=== PATIENT | female | born 1965 | race Caucasian/White ===

== ENCOUNTER 2017-12-02 09:40 | Emergency (ER) | payer OTHER ==
[~2017-12-02] VITALS: Ht 162.6 cm; Wt 79.1 kg
[~2017-12-02 09:40] MED LIST: CLOT15CR74 TP; NO HOME MEDS; ONDA4TAB12 PO; OXYC-134 PO
[2017-12-02 10:21] LABS: CLARITY,URINE CLOUDY (Clear); GLUCOSE, URINE NEGATIVE (Neg); KETONES,URINE NEGATIVE (Neg); LEUKOCYTE ESTERASE ,URINE NEGATIVE (Neg); NITRITES, URINE NEGATIVE (Neg); OCCULT BLOOD,URINE LARGE (Neg); PH,URINE 5.5 (4.8-8.0); PROTEIN,URINE TRACE mg/dl (Neg); UROBILINOGEN,URINE 0.2 E.U/dL (0.2-1.0)
[2017-12-02 10:23] LABS: COLOR,URINE DARK YELLOW (Yellow); UA COLLECTION TYPE CLN CATCH MIDSTREAM
[2017-12-02 10:28] LABS: BACTERIA,URINE 2+ /HPF (Neg); MUCUS STRANDS MODERATE /LPF (Neg); RBC,URINE 20-50 /HPF (0-2); SQUAMOUS EPITHELIAL CELL,UR MANY /LPF (FEW); WBC,URINE 0-4 /HPF (0-4)
[2017-12-02 11:17] LABS: BASOPHILS % (AUTO) 0.4 % (0-1); EOSINOPHILS # (AUTO) 0.3 X10'3 (0-0.9); EOSINOPHILS % (AUTO) 3.3 % (0-6); HEMATOCRIT 41.6 % (35.0-45.0); HEMOGLOBIN 14.1 g/dl (12.0-16.0); LYMPHOCYTES # (AUTO) 1.2 X10'3 (1.1-4.8); LYMPHOCYTES % (AUTO) 14.9 % (21-51); MEAN CORPUSCULAR HEMOGLOBIN 29.5 PG (27.0-31.0); MEAN CORPUSCULAR VOLUME 86.8 FL (78-98); MEAN PLATELET VOLUME 7.9 FL (7.4-10.4); MONOCYTES # (AUTO) 0.5 X10'3 (0-0.9); MONOCYTES % (AUTO) 5.9 % (2-12); NEUTROPHILS # (AUTO) 6.1 X10'3 (1.8-7.7); NEUTROPHILS % (AUTO) 75.5 % (42-75); PLATELET COUNT 204 X10'3 (140-440); RED CELL DISTRIBUTION WIDTH 13.1 % (11.5-14.5); WHITE BLOOD COUNT 8.1 X10'3 (4.5-11.0)
[2017-12-02 11:33] LABS: ALANINE AMINOTRANSFERASE 45 U/L (12-78); ALBUMIN 3.9 G/DL (3.4-5.0); ALBUMIN/GLOBULIN RATIO 1.1 (1.1-1.5); ALKALINE PHOSPHATASE 81 IU/L (46-116); ANION GAP 10 (8-16); ASPARTATE AMINO TRANSFERASE 17 U/L (10-37); BILIRUBIN,TOTAL 0.6 MG/DL (0.1-1.0); BLOOD UREA NITROGEN 13 MG/DL (7-18); BUN/CREATININE RATIO 17.8 (6.6-38.0); CALCIUM 8.9 MG/DL (8.5-10.1); CHLORIDE 107 MMOL/L (99-107); CREATININE 0.73 MG/DL (0.40-0.90); GLUCOSE 134 MG/DL (70-104); POTASSIUM 3.5 MMOL/L (3.5-5.1); SODIUM 143 MMOL/L (135-145); TOTAL CARBON DIOXIDE 26.4 MMOL/L (24-32); TOTAL PROTEIN 7.5 G/DL (6.4-8.2); eGFR 83 ML/MIN
[2017-12-02 13:44] VITALS: BP 118/69
== END 2017-12-02 13:45 | disposition home or self-care (01) ==
LOC: ER 09:40
DX: K63.89 Other specified diseases of intestine (principal); Z90.710 Acquired absence of both cervix and uterus
CPT/HCPCS: 36415; 74176; 80053; 81001; 85025; 85610; 99285

== ENCOUNTER 2017-12-19 08:39 | Outpatient (CLI) | payer OTHER ==
[2017-12-19] MEDS ORDERED: iohexol 300mg/ml 100ml inj. ONE (09:45)
== END 2017-12-19 23:59 | disposition home or self-care (01) ==
LOC: 64 CT 08:39
PROVIDERS: ATTEND Surgery
DX: Z00.00 Encounter for general adult medical examination without abnormal findings (principal)
CPT/HCPCS: 74177; Q9967

== ENCOUNTER 2018-01-03 08:49 | Outpatient (CLI) | payer OTHER | END 2018-01-03 23:59 | disposition home or self-care (01) | LOC: RAD 08:49 | PROVIDERS: ATTEND Surgery | DX: M23.203 Derangement of unspecified medial meniscus due to old tear or injury, right knee (principal); M71.21 Synovial cyst of popliteal space [Baker], right knee | CPT/HCPCS: 73721 ==

== ENCOUNTER 2018-04-25 09:22 | Day surgery (SDC) | payer OTHER ==
[2018-04-25] VITALS (7 sets, daily range): BP systolic 100–111; BP diastolic 58–67
[~2018-04-25] VITALS: Ht 162.6 cm; Wt 75.0 kg
[2018-04-25] MEDS ORDERED: MIDAZolam 5mg/5ml vial ONE (10:37)
[2018-04-25] MEDS ORDERED: fentaNYL/PF 50MCG/1 ML 2ML syringe ONE (10:37)
== END 2018-04-25 13:29 | disposition home or self-care (01) ==
LOC: GI LAB 09:22
PROVIDERS: ATTEND Internal Medicine Gastroenterology
DX: Z12.11 Encounter for screening for malignant neoplasm of colon (principal); Z90.710 Acquired absence of both cervix and uterus; Z98.890 Other specified postprocedural states
CPT/HCPCS: 45378; 99152; 99153; J2250; J3010; J7030; A4620; G0500

== ENCOUNTER 2018-06-11 12:33 | Emergency (ER) | payer OTHER ==
[~2018-06-11] VITALS: Ht 162.6 cm; Wt 80.3 kg
[~2018-06-11 12:33] MED LIST changes: -CLOT15CR74 TP; -ONDA4TAB12 PO; -OXYC-134 PO
[2018-06-11 12:43] VITALS: BP 118/73
[2018-06-11] MEDS ORDERED: SUMAtriptan succ. 6 MG/0.5ml vial SQ ONE (13:10)
[2018-06-11] MEDS ORDERED: SUMA100T PO (15:41)
== END 2018-06-11 15:54 | disposition home or self-care (01) ==
LOC: ER 12:33
DX: R51 Headache (principal); R93.0 Abnormal findings on diagnostic imaging of skull and head, not elsewhere classified; Z90.710 Acquired absence of both cervix and uterus; Z98.890 Other specified postprocedural states
CPT/HCPCS: 70551; 96372; 99284; J3030

== ENCOUNTER 2018-10-05 09:56 | Day surgery (SDC) | payer OTHER ==
[2018-10-03 16:04] LABS: BASOPHILS % (AUTO) 0.6 % (0-1); EOSINOPHILS # (AUTO) 0.5 X10'3 (0-0.9); EOSINOPHILS % (AUTO) 7.3 % (0-6); LYMPHOCYTES # (AUTO) 1.6 X10'3 (1.1-4.8); LYMPHOCYTES % (AUTO) 23.4 % (21-51); MEAN CORPUSCULAR HEMOGLOBIN 28.5 PG (27.0-31.0); MEAN CORPUSCULAR HGB CONC 32.2 % (33.0-36.5); MEAN CORPUSCULAR VOLUME 88.3 FL (78-98); MEAN PLATELET VOLUME 8.4 FL (7.4-10.4); MONOCYTES # (AUTO) 0.5 X10'3 (0-0.9); MONOCYTES % (AUTO) 7.5 % (2-12); NEUTROPHILS # (AUTO) 4.3 X10'3 (1.8-7.7); NEUTROPHILS % (AUTO) 61.2 % (42-75); PRE OP HEMATOCRIT 42.8 % (35.0-45.0); PRE OP HEMOGLOBIN 13.8 g/dL (12.0-16.0); PRE OP PLATELET COUNT 226 X10'3 (140-440); RED BLOOD COUNT 4.85 X10'6 (4.20-5.60); RED CELL DISTRIBUTION WIDTH 12.6 % (11.5-14.5)
[2018-10-03 16:18] LABS: ALBUMIN 3.7 G/DL (3.4-5.0); ALKALINE PHOSPHATASE 96 IU/L (46-116); BLOOD UREA NITROGEN 16 MG/DL (7-18); BUN/CREATININE RATIO 21.9 (6.6-38.0); CALCIUM 8.9 MG/DL (8.5-10.1); CHLORIDE 103 MMOL/L (99-107); CREATININE 0.73 MG/DL (0.40-0.90); PRE OP ALT 47 U/L (30-65); PRE OP ANION GAP 10 (8-16); PRE OP AST 18 U/L (10-37); PRE OP BILIRUB, TOTAL 0.3 MG/DL (0.0-1.0); PRE OP GLUCOSE 104 MG/DL (70-104); PRE OP POTASSIUM 3.5 MMOL/L (3.4-5.1); PRE OP SODIUM 142 MMOL/L (135-145); TOTAL CARBON DIOXIDE 28.7 MMOL/L (24-32); TOTAL PROTEIN 7.3 G/DL (6.4-8.2); eGFR 83 ML/MIN
[2018-10-05] VITALS (14 sets, daily range): BP systolic 97–134; BP diastolic 37–90
[~2018-10-05] VITALS: Ht 165.1 cm; Wt 81.6 kg
[~2018-10-05 09:56] MED LIST changes: +cefazolin/dext.iso 2gm/100 ML IV ONE; +famotidine 20mg tablet PO ONE; +ringers solution, lacted 1,000 ML IV SCH
[2018-10-05] MEDS ORDERED: epiNEPHrine 1 mg/ml inj ONE (11:11)
[2018-10-05] MEDS ORDERED: LIDOcaine 1% 30ml preserv. free vial ONE (11:11)
[2018-10-05] MEDS ORDERED: ROPIVAcaine 0.5% (5mg/ml) 30ml vial ONE (11:11)
[2018-10-05] MEDS ORDERED: LIDOcaine 1% w/EPI 1:100,000 30ml vial (MDV) IJ ONE ×2 (11:20→13:03)
[2018-10-05] MEDS ORDERED: fentaNYL/PF 50MCG/1 ML 2ML syringe ONE ×2 (12:08→12:34)
[2018-10-05] MEDS ORDERED: sevoflurane 250ml liquid IH ONE (12:15)
[2018-10-05] MEDS ORDERED: triamcinolone acetonide 40mg/ml inj ONE (12:42)
[2018-10-05] MEDS ORDERED: ondansetron/PF 4mg/2ml inj ONE (12:50)
[2018-10-05] MEDS ORDERED: propofol inj 20 ML IV ONE (12:50)
[2018-10-05] MEDS ORDERED: LIDOcaine 2% (20mg/ml) 5ml vial ONE (12:50)
[2018-10-05] MEDS ORDERED: ePHEDrine 50MG/ML INJ. ONE (12:50)
[2018-10-05] MEDS ORDERED: dexamethasone sod phosphate 4mg/ml inj. ONE (12:50)
[2018-10-05] MEDS ORDERED: ringers solution, lacted 1,000 ML IV SCH (12:54)
[2018-10-05] MEDS ORDERED: meperidine/PF 25mg/ml syringe IV PRN ×3 (12:55)
[2018-10-05] MEDS ORDERED: morphine 4 MG/ML inj SYRINge IV PRN ×2 (12:55)
[2018-10-05] MEDS ORDERED: proCHLORperazine 10 MG/2 ml inj IV PRN (12:55)
[2018-10-05] MEDS ORDERED: ondansetron/PF 4mg/2ml inj IV PRN (12:55)
[2018-10-05] MEDS ORDERED: triamcinolone acetonide 40mg/ml inj IM ONE (13:05)
[2018-10-05] MEDS ORDERED: ROPIVAcaine 0.5% (5mg/ml) 30ml vial IJ ONE (13:07)
--- NOTE | 2018-10-05 13:30 | NUR ---
Received from OR via , accompanied by Anesthesiologist DR AVINA and report given by Anesthesiolgist. PT WAKES TO VOICE, SKIN WARM AND PINK, RIGHT KNEE DRESSING WITH ISAIAS WRAP CD, PIV LEFT HAND 20G WITH LR 100ML/HR, ABLE TO MOVE EXT X 4, RESPIRATIONS CLEAR, PAIN MEDICATED WITH TORADOL AND DEMEROL, ZOFRAN FOR NAUSEA.
[2018-10-05] MEDS ORDERED: ketorolac trometh. 30mg/ml inj. IV ONE (13:35)
--- NOTE | 2018-10-05 14:16 | NUR ---
CARLOS FROM [facility] NOTIFIED OF MEDICATION DELIVERY REQUESTED BY PT.
--- NOTE | 2018-10-05 15:03 | NUR ---
PATIENT IS READY FOR DISCHARGE. WAITING FOR LOC[facility] TO DELIVER HOME MEDICATIONS. REVIEWED DISCHARGE INSTRUCTIONS WITH PATIENT, DIAGRAM FOR EXERCISES GIVEN TO PATIENT, IV REMOVED, NEURO CHECKS INTACT, PAIN UNDER CONTROL AND VSS. CRUTCHES GIVEN FOR DISCHARGE WITH EXPLANATION OF PARTIAL WEIGHT BEARING.
== END 2018-10-05 15:30 | disposition home or self-care (01) ==
LOC: PAS 09:56
PROVIDERS: ATTEND Orthopaedic Surgery
DX: M23.231 Derangement of other medial meniscus due to old tear or injury, right knee (principal); M23.251 Derangement of posterior horn of lateral meniscus due to old tear or injury, right knee; M22.41 Chondromalacia patellae, right knee; M17.11 Unilateral primary osteoarthritis, right knee; G43.909 Migraine, unspecified, not intractable, without status migrainosus; Z87.19 Personal history of other diseases of the digestive system; Z90.710 Acquired absence of both cervix and uterus; Z98.890 Other specified postprocedural states; Z79.899 Other long term (current) drug therapy
CPT/HCPCS: 29880; 36415; 80053; 85025; 93005; A6449; J0171; J0690; J1100; J1885; J2001; J2175; J2405; J2704; J3010; J3301; J3490; A7000; J2795; J7030; J7120

== ENCOUNTER 2018-12-06 07:42 | Outpatient (CLI) | payer OTHER ==
[~2018-12-06 07:42] MED LIST changes: -cefazolin/dext.iso 2gm/100 ML IV ONE; -famotidine 20mg tablet PO ONE; -ringers solution, lacted 1,000 ML IV SCH
[2018-12-06 08:45] LABS: CLARITY,URINE CLEAR (Clear); COLOR,URINE YELLOW (Yellow); GLUCOSE, URINE NEGATIVE (Neg); KETONES,URINE NEGATIVE (Neg); LEUKOCYTE ESTERASE ,URINE NEGATIVE (Neg); NITRITES, URINE NEGATIVE (Neg); OCCULT BLOOD,URINE LARGE (Neg); PROTEIN,URINE NEGATIVE (Neg); UROBILINOGEN,URINE 0.2 E.U/dL (0.2-1.0)
[2018-12-06 08:47] LABS: BASOPHILS % (AUTO) 0.6 % (0-1); EOSINOPHILS # (AUTO) 0.4 X10'3 (0-0.9); EOSINOPHILS % (AUTO) 6.7 % (0-6); HEMATOCRIT 39.3 % (35.0-45.0); HEMOGLOBIN 13.1 g/dl (12.0-16.0); LYMPHOCYTES # (AUTO) 1.1 X10'3 (1.1-4.8); MEAN CORPUSCULAR HEMOGLOBIN 29.1 PG (27.0-31.0); MEAN CORPUSCULAR HGB CONC 33.5 g/dL (33.0-36.5); MEAN CORPUSCULAR VOLUME 86.8 FL (78-98); MEAN PLATELET VOLUME 8.2 FL (7.4-10.4); MONOCYTES # (AUTO) 0.5 X10'3 (0-0.9); MONOCYTES % (AUTO) 8.4 % (2-12); NEUTROPHILS # (AUTO) 3.4 X10'3 (1.8-7.7); NEUTROPHILS % (AUTO) 63.3 % (42-75); PLATELET COUNT 199 X10'3 (140-440); RED BLOOD COUNT 4.52 X10'6 (4.20-5.60); RED CELL DISTRIBUTION WIDTH 13.9 % (11.5-14.5); WHITE BLOOD COUNT 5.4 X10'3 (4.5-11.0)
[2018-12-06 08:49] LABS: UA COLLECTION TYPE CLN CATCH MIDSTREAM
[2018-12-06 08:55] LABS: BACTERIA,URINE 1+ /HPF (Neg); MUCUS STRANDS MODERATE /LPF (Neg); SQUAMOUS EPITHELIAL CELL,UR MANY /LPF (FEW); WBC,URINE 0-4 /HPF (0-4)
[2018-12-06 09:33] LABS: ALANINE AMINOTRANSFERASE 35 U/L (12-78); ALBUMIN 3.3 G/DL (3.4-5.0); ALKALINE PHOSPHATASE 85 IU/L (46-116); ANION GAP 10 (8-16); ASPARTATE AMINO TRANSFERASE 18 U/L (10-37); BILIRUBIN,TOTAL 0.4 MG/DL (0.1-1.0); BLOOD UREA NITROGEN 16 MG/DL (7-18); BUN/CREATININE RATIO 23.9 (6.6-38.0); CALCIUM 8.7 MG/DL (8.5-10.1); CHLORIDE 107 MMOL/L (99-107); CHOL/HDL RATIO 2.9 (0.00-4.99); CHOLESTEROL 155 MG/DL (0-200); CREATININE 0.67 MG/DL (0.40-0.90); GLUCOSE 102 MG/DL (70-104); HDL CHOLESTEROL 54 MG/DL (35-60); LDL CHOLESTEROL 95 MG/DL (50-100); POTASSIUM 3.8 MMOL/L (3.5-5.1); SODIUM 143 MMOL/L (135-145); TOTAL CARBON DIOXIDE 25.8 MMOL/L (24-32); TOTAL PROTEIN 6.7 G/DL (6.4-8.2); TRIGLYCERIDES 49 MG/DL (20-135); eGFR > 90 ML/MIN
== END 2018-12-06 23:59 | disposition home or self-care (01) ==
LOC: LAB 07:42
PROVIDERS: ATTEND Family Medicine
DX: Z00.00 Encounter for general adult medical examination without abnormal findings (principal); L24.9 Irritant contact dermatitis, unspecified cause; R73.03 Prediabetes; R39.9 Unspecified symptoms and signs involving the genitourinary system
CPT/HCPCS: 36415; 80053; 80061; 81001; 84439; 84443; 85025

== ENCOUNTER 2019-02-14 14:57 | Outpatient (CLI) | payer OTHER ==
[~2019-02-14] VITALS: Ht 165.1 cm; Wt 81.6 kg
[2019-02-14 16:25] LABS: BASOPHILS % (AUTO) 0.5 % (0-1); EOSINOPHILS # (AUTO) 0.5 X10'3 (0-0.9); EOSINOPHILS % (AUTO) 6.8 % (0-6); LYMPHOCYTES # (AUTO) 1.6 X10'3 (1.1-4.8); LYMPHOCYTES % (AUTO) 21.3 % (21-51); MEAN CORPUSCULAR HEMOGLOBIN 29.3 PG (27.0-31.0); MEAN CORPUSCULAR HGB CONC 33.9 g/dL (33.0-36.5); MEAN CORPUSCULAR VOLUME 86.5 FL (78-98); MEAN PLATELET VOLUME 8.4 FL (7.4-10.4); MONOCYTES # (AUTO) 0.4 X10'3 (0-0.9); MONOCYTES % (AUTO) 5.3 % (2-12); NEUTROPHILS % (AUTO) 66.1 % (42-75); PRE OP HEMATOCRIT 40.3 % (35.0-45.0); PRE OP HEMOGLOBIN 13.7 g/dL (12.0-16.0); PRE OP PLATELET COUNT 200 X10'3 (140-440); RED BLOOD COUNT 4.66 X10'6 (4.20-5.60); RED CELL DISTRIBUTION WIDTH 13.5 % (11.5-14.5)
[2019-02-14 16:39] LABS: ALBUMIN 3.8 G/DL (3.4-5.0); ALBUMIN/GLOBULIN RATIO 1.1 (1.1-1.5); ALKALINE PHOSPHATASE 88 IU/L (46-116); BLOOD UREA NITROGEN 15 MG/DL (7-18); BUN/CREATININE RATIO 19.7 (6.6-38.0); CHLORIDE 106 MMOL/L (99-107); CREATININE 0.76 MG/DL (0.40-0.90); PRE OP ALT 36 U/L (30-65); PRE OP ANION GAP 7 (8-16); PRE OP AST 18 U/L (10-37); PRE OP BILIRUB, TOTAL 0.3 MG/DL (0.0-1.0); PRE OP GLUCOSE 107 MG/DL (70-104); PRE OP POTASSIUM 3.4 MMOL/L (3.4-5.1); PRE OP SODIUM 141 MMOL/L (135-145); TOTAL CARBON DIOXIDE 27.7 MMOL/L (24-32); TOTAL PROTEIN 7.4 G/DL (6.4-8.2); eGFR 79 ML/MIN
[2019-02-14 16:40] LABS: CLARITY,URINE SLIGHTLY CLOUDY (Clear); COLOR,URINE YELLOW (Yellow); GLUCOSE, URINE NEGATIVE (Neg); KETONES,URINE NEGATIVE (Neg); LEUKOCYTE ESTERASE ,URINE NEGATIVE (Neg); NITRITES, URINE NEGATIVE (Neg); OCCULT BLOOD,URINE LARGE (Neg); PH,URINE 5.5 (4.8-8.0); PROTEIN,URINE NEGATIVE (Neg); UROBILINOGEN,URINE 0.2 E.U/dL (0.2-1.0)
[2019-02-14 16:47] LABS: UA COLLECTION TYPE CLN CATCH MIDSTREAM
[2019-02-14 16:48] LABS: BACTERIA,URINE 1+ /HPF (Neg); HYALINE CASTS 0-3 /LPF (NEGATIVE); MUCUS STRANDS MANY /LPF (Neg); SQUAMOUS EPITHELIAL CELL,UR MANY /LPF (FEW)
[2019-02-14 16:49] LABS: RBC,URINE 20-50 /HPF (0-2); WBC,URINE 0-4 /HPF (0-4)
[2019-02-14 17:18] LABS: PARTIAL THROMBOPLASTIN TIME 30 SECONDS (22-32)
[2019-02-21] MEDS ORDERED: famotidine 20mg tablet PO ONE (11:30)
[2019-02-21] MEDS ORDERED: ringers solution, lacted 1,000 ML IV SCH (11:30)
[2019-02-21] MEDS ORDERED: ceFOXitin 2 GM ADDvantage bag 100 ML IV ONE (11:30)
== END 2019-02-14 23:59 | disposition home or self-care (01) ==
LOC: PRE-OP 14:57 → EDSTATUS 03-06 07:30
PROVIDERS: ATTEND Obstetrics & Gynecology
DX: Z01.818 Encounter for other preprocedural examination (principal); N75.0 Cyst of Bartholin's gland; R19.00 Intra-abdominal and pelvic swelling, mass and lump, unspecified site
CPT/HCPCS: 36415; 80053; 81001; 85025; 85610; 85730; J0694; J7120

== ENCOUNTER → 2020-03-13 | Day surgery (SDC) | payer OTHER ==
[~2020-03-13] MED LIST changes: +triamcinolone acetonide 40mg/ml inj IM ONE
== END | disposition home or self-care (01) ==
LOC: WOUND CARE 15:16
PROVIDERS: ATTEND Nurse Practitioner
DX: M72.2 Plantar fascial fibromatosis (principal); G43.909 Migraine, unspecified, not intractable, without status migrainosus; M17.11 Unilateral primary osteoarthritis, right knee; G93.89 Other specified disorders of brain; F14.90 Cocaine use, unspecified, uncomplicated; Z90.710 Acquired absence of both cervix and uterus; Z79.899 Other long term (current) drug therapy; Z98.890 Other specified postprocedural states; Z87.19 Personal history of other diseases of the digestive system
CPT/HCPCS: G0463; J3301

== ENCOUNTER 2020-04-08 09:49 | Outpatient (CLI) | payer BC ==
[~2020-04-08 09:49] MED LIST changes: -triamcinolone acetonide 40mg/ml inj IM ONE
== END 2020-04-08 23:59 | disposition home or self-care (01) ==
LOC: RAD 09:49
PROVIDERS: ATTEND Orthopaedic Surgery
DX: S83.242A Other tear of medial meniscus, current injury, left knee, initial encounter (principal); M67.462 Ganglion, left knee; M71.22 Synovial cyst of popliteal space [Baker], left knee; M25.462 Effusion, left knee; X58.XXXA Exposure to other specified factors, initial encounter; Y93.89 Activity, other specified; Y92.89 Other specified places as the place of occurrence of the external cause; Y99.8 Other external cause status
CPT/HCPCS: 73721

== ENCOUNTER 2020-04-17 14:20 | Outpatient (CLI) | payer BC | END 2020-04-17 15:00 | disposition home or self-care (01) | LOC: WOUND CARE 14:20 → EDSTATUS 14:20 → WOUND CARE 15:00 | PROVIDERS: ATTEND Nurse Practitioner | DX: M72.2 Plantar fascial fibromatosis (principal); M25.562 Pain in left knee; G43.909 Migraine, unspecified, not intractable, without status migrainosus; M17.11 Unilateral primary osteoarthritis, right knee; G93.89 Other specified disorders of brain; F14.90 Cocaine use, unspecified, uncomplicated; Z90.710 Acquired absence of both cervix and uterus; Z79.899 Other long term (current) drug therapy; Z98.890 Other specified postprocedural states; Z87.19 Personal history of other diseases of the digestive system | CPT/HCPCS: G0463 ==

== ENCOUNTER 2020-05-08 14:15 | Outpatient (CLI) | payer BC | END 2020-05-08 14:49 | disposition home or self-care (01) | LOC: WOUND CARE 14:15 | PROVIDERS: ATTEND Nurse Practitioner | DX: M79.671 Pain in right foot (principal) | CPT/HCPCS: 73630 ==

== ENCOUNTER → 2020-07-31 | Outpatient (CLI) | payer BC | END | disposition home or self-care (01) | LOC: RAD 14:31 | PROVIDERS: ATTEND Nurse Practitioner | DX: M77.31 Calcaneal spur, right foot (principal) | CPT/HCPCS: 73721 ==

== ENCOUNTER 2020-10-15 09:39 | Emergency (ER) | payer BC ==
[~2020-10-15] VITALS: Ht 162.6 cm; Wt 82.2 kg
[2020-10-15 10:53] LABS: BASOPHILS % (AUTO) 0.7 % (0-1); EOSINOPHILS # (AUTO) 0.4 X10'3 (0-0.9); EOSINOPHILS % (AUTO) 6.6 % (0-6); HEMATOCRIT 40.5 % (35.0-45.0); HEMOGLOBIN 13.4 g/dl (12.0-16.0); LYMPHOCYTES # (AUTO) 1.6 X10'3 (1.1-4.8); MEAN CORPUSCULAR HEMOGLOBIN 28.8 PG (27.0-31.0); MEAN CORPUSCULAR HGB CONC 33.2 g/dL (33.0-36.5); MEAN CORPUSCULAR VOLUME 86.7 FL (78-98); MEAN PLATELET VOLUME 8.2 FL (7.4-10.4); MONOCYTES # (AUTO) 0.5 X10'3 (0-0.9); NEUTROPHILS # (AUTO) 3.2 X10'3 (1.8-7.7); NEUTROPHILS % (AUTO) 56.7 % (42-75); PLATELET COUNT 197 X10'3 (140-440); RED BLOOD COUNT 4.67 X10'6 (4.20-5.60); RED CELL DISTRIBUTION WIDTH 13.7 % (11.5-14.5); WHITE BLOOD COUNT 5.7 X10'3 (4.5-11.0)
[2020-10-15 11:02] LABS: ALBUMIN 3.6 G/DL (3.4-5.0); ANION GAP 7 (8-16); BLOOD UREA NITROGEN 17 MG/DL (7-18); CHLORIDE 108 MMOL/L (99-107); CREATININE 0.63 MG/DL (0.40-0.90); GLUCOSE 103 MG/DL (70-104); SODIUM 143 MMOL/L (135-145); TOTAL CARBON DIOXIDE 27.6 MMOL/L (24-32); eGFR > 90 ML/MIN
[2020-10-15 13:49] VITALS: BP 135/97
== END 2020-10-15 13:50 | disposition home or self-care (01) ==
LOC: EEVIPCON 09:39 → ER 09:39
DX: E87.8 Other disorders of electrolyte and fluid balance, not elsewhere classified (principal); R51.9 Headache, unspecified; Z98.890 Other specified postprocedural states; Z90.710 Acquired absence of both cervix and uterus
CPT/HCPCS: 36415; 70553; 80048; 85025; 93005; 99285

== ENCOUNTER 2020-12-31 14:43 | Outpatient (CLI) | payer OTHER | END 2020-12-31 23:59 | disposition home or self-care (01) | LOC: LAB 14:43 | PROVIDERS: ATTEND Internal Medicine Infectious Disease | DX: Z01.84 Encounter for antibody response examination (principal) ==

== ENCOUNTER 2021-05-07 16:55 | Outpatient (CLI) | payer BC | END 2021-05-07 23:59 | disposition home or self-care (01) | LOC: RAD 16:55 | PROVIDERS: ATTEND Nurse Practitioner | DX: M19.012 Primary osteoarthritis, left shoulder (principal) | CPT/HCPCS: 73030; 73060 ==

== ENCOUNTER 2021-06-08 14:15 | Outpatient (CLI) | payer BC ==
[2021-06-08 15:53] LABS: BASOPHILS % (AUTO) 0.6 % (0-1); EOSINOPHILS # (AUTO) 0.4 X10'3 (0-0.9); EOSINOPHILS % (AUTO) 5.1 % (0-6); HEMATOCRIT 40.3 % (35.0-45.0); HEMOGLOBIN 13.4 g/dl (12.0-16.0); LYMPHOCYTES # (AUTO) 1.9 X10'3 (1.1-4.8); LYMPHOCYTES % (AUTO) 23.1 % (21-51); MEAN CORPUSCULAR HEMOGLOBIN 28.4 PG (27.0-31.0); MEAN CORPUSCULAR HGB CONC 33.2 g/dL (33.0-36.5); MEAN CORPUSCULAR VOLUME 85.5 FL (78-98); MEAN PLATELET VOLUME 8.2 FL (7.4-10.4); MONOCYTES # (AUTO) 0.6 X10'3 (0-0.9); MONOCYTES % (AUTO) 6.9 % (2-12); NEUTROPHILS # (AUTO) 5.4 X10'3 (1.8-7.7); NEUTROPHILS % (AUTO) 64.3 % (42-75); PLATELET COUNT 215 X10'3 (140-440); RED BLOOD COUNT 4.72 X10'6 (4.20-5.60); WHITE BLOOD COUNT 8.4 X10'3 (4.5-11.0)
[2021-06-08 18:22] LABS: ALANINE AMINOTRANSFERASE 40 U/L (12-78); ALBUMIN 4.1 G/DL (3.4-5.0); ALBUMIN/GLOBULIN RATIO 1.2 (1.1-1.5); ALKALINE PHOSPHATASE 108 IU/L (46-116); ANION GAP 14 (8-16); ASPARTATE AMINO TRANSFERASE 20 U/L (10-37); BILIRUBIN,TOTAL 0.4 MG/DL (0.1-1.0); BLOOD UREA NITROGEN 14 MG/DL (7-18); BUN/CREATININE RATIO 17.3 (6.6-38.0); CALCIUM 9.3 MG/DL (8.5-10.1); CHLORIDE 106 MMOL/L (99-107); CREATININE 0.81 MG/DL (0.40-0.90); GLUCOSE 121 MG/DL (70-104); POTASSIUM 3.6 MMOL/L (3.5-5.1); SODIUM 145 MMOL/L (135-145); TOTAL PROTEIN 7.6 G/DL (6.4-8.2); eGFR 73 ML/MIN
[2021-06-08 18:32] LABS: CHOLESTEROL 169 MG/DL (0-200); HDL CHOLESTEROL 57 MG/DL (35-60); LDL CHOLESTEROL 97 MG/DL (50-100); TRIGLYCERIDES 74 MG/DL (20-135)
== END 2021-06-08 23:59 | disposition home or self-care (01) ==
LOC: RAD 14:15
PROVIDERS: ATTEND Family Medicine
DX: M19.042 Primary osteoarthritis, left hand (principal)
CPT/HCPCS: 36415; 73110; 73130; 80053; 80061; 84439; 84443; 85025

== ENCOUNTER 2021-09-14 06:44 | Day surgery (SDC) | payer BC ==
[~2021-09-14] VITALS: Ht 162.6 cm; Wt 81.8 kg
[2021-09-14 07:08] VITALS: BP 116/63
[2021-09-14] MEDS ORDERED: MIDAZolam 1 MG/ML 5ML VIAL ONE (07:09)
[2021-09-14] MEDS ORDERED: fentaNYL/PF 50MCG/1 ML 2ML syringe ONE (07:09)
[2021-09-14] MEDS ORDERED: LIDOcaine Viscous 15ml cup ONE (07:10)
[2021-09-14 08:09] VITALS: BP 100/72
[2021-09-14 08:19] VITALS: BP 84/55
[2021-09-14 08:29] VITALS: BP 111/76
[2021-09-14 08:39] VITALS: BP 107/70
== END 2021-09-14 08:55 | disposition home or self-care (01) ==
LOC: GI LAB 06:44
PROVIDERS: ATTEND Internal Medicine Gastroenterology
DX: R13.14 Dysphagia, pharyngoesophageal phase (principal); K22.2 Esophageal obstruction; K29.50 Unspecified chronic gastritis without bleeding; K20.80 Other esophagitis without bleeding
CPT/HCPCS: 43239; 43248; 99152; C1769; J2250; J3010; J7040; Z7512; A4620

== ENCOUNTER 2024-02-07 06:15 | Outpatient (CLI) | payer BC ==
[2024-02-07 08:44] LABS: BASOPHILS # (AUTO) 0.1 X10'3 (0-0.2); BASOPHILS % (AUTO) 0.9 % (0-1); EOSINOPHILS # (AUTO) 0.3 X10'3 (0-0.9); HEMATOCRIT 39.8 % (35.0-45.0); HEMOGLOBIN 13.1 g/dl (12.0-16.0); LYMPHOCYTES # (AUTO) 1.8 X10'3 (1.1-4.8); LYMPHOCYTES % (AUTO) 22.8 % (21-51); MEAN CORPUSCULAR HEMOGLOBIN 28.4 PG (27.0-31.0); MEAN PLATELET VOLUME 7.5 FL (7.4-10.4); MONOCYTES # (AUTO) 0.6 X10'3 (0-0.9); MONOCYTES % (AUTO) 7.6 % (2-12); NEUTROPHILS % (AUTO) 64.7 % (42-75); PLATELET COUNT 268 X10'3 (140-440); RED BLOOD COUNT 4.62 X10'6 (4.20-5.60); RED CELL DISTRIBUTION WIDTH 13.3 % (11.5-14.5); WHITE BLOOD COUNT 7.7 X10'3 (4.5-11.0)
[2024-02-07 08:50] LABS: BILIRUBIN,URINE NEGATIVE (Neg); CLARITY,URINE CLOUDY (Clear); COLOR,URINE YELLOW (Yellow); GLUCOSE, URINE NEGATIVE (Neg); KETONES,URINE NEGATIVE (Neg); LEUKOCYTE ESTERASE ,URINE TRACE (Neg); NITRITES, URINE NEGATIVE (Neg); OCCULT BLOOD,URINE MODERATE (Neg); PH,URINE 5.5 (4.8-8.0); PROTEIN,URINE NEGATIVE (Neg); UROBILINOGEN,URINE 0.2 E.U/dL (0.2-1.0)
[2024-02-07 09:07] LABS: UA COLLECTION TYPE CLN CATCH MIDSTREAM
[2024-02-07 09:08] LABS: FINE GRANULAR CAST 0-3 /LPF (NEGATIVE); HYALINE CASTS 0-3 /LPF (NEGATIVE); MUCUS STRANDS MANY /LPF (Neg); SQUAMOUS EPITHELIAL CELL,UR MANY /LPF (FEW)
[2024-02-07 09:09] LABS: WBC,URINE 50-100 /HPF (0-4)
[2024-02-07 09:11] LABS: AMORPHOUS URATES 3+; BACTERIA,URINE FEW /HPF (Neg); RBC,URINE 20-50 /HPF (0-2); TRANSITIONAL EPI CELLS,URINE FEW /HPF
[2024-02-07 09:17] LABS: ALANINE AMINOTRANSFERASE 28 U/L (12-78); ALBUMIN 3.7 G/DL (3.4-5.0); ALBUMIN/GLOBULIN RATIO 0.9 (1.1-1.5); ALKALINE PHOSPHATASE 84 IU/L (46-116); ANION GAP 9 (8-16); ASPARTATE AMINO TRANSFERASE 12 U/L (10-37); BILIRUBIN,TOTAL 0.4 MG/DL (0.1-1.0); BLOOD UREA NITROGEN 12 MG/DL (7-18); BUN/CREATININE RATIO 17.6 (10.0-20.0); CALCIUM 9.1 MG/DL (8.5-10.1); CHLORIDE 103 MMOL/L (99-107); CHOL/HDL RATIO 2.7 (0.00-4.99); CHOLESTEROL 137 MG/DL (0-200); CREATININE 0.68 MG/DL (0.40-0.90); GLUCOSE 121 MG/DL (70-104); HDL CHOLESTEROL 51 MG/DL (35-60); LDL CHOLESTEROL 79 MG/DL (50-100); POTASSIUM 3.6 MMOL/L (3.5-5.1); SODIUM 139 MMOL/L (135-145); THYROID STIMULATING HORMONE 0.98 ulU/ml (0.34-4.50); TOTAL PROTEIN 7.7 G/DL (6.4-8.2); TRIGLYCERIDES 34 MG/DL (20-135); eGFR 88 ML/MIN
[2024-02-07 09:38] LABS: FREE T4 (FREE THYROXINE) 1.07 NG/DL (0.73-1.40)
== END 2024-02-07 23:59 | disposition home or self-care (01) ==
LOC: LAB 06:15
PROVIDERS: ATTEND Nurse Practitioner Family
DX: Z00.01 Encounter for general adult medical examination with abnormal findings (principal); Z13.220 Encounter for screening for lipoid disorders; R73.03 Prediabetes
CPT/HCPCS: 36415; 80053; 80061; 81001; 83036; 84439; 84443; 85025

== ENCOUNTER 2024-03-17 10:41 | Outpatient (CLI) | payer BC | END 2024-03-17 23:59 | disposition home or self-care (01) | LOC: MRI 10:41 | PROVIDERS: ATTEND Nurse Practitioner Family | DX: R29.898 Other symptoms and signs involving the musculoskeletal system (principal) | CPT/HCPCS: 73221 ==

== ENCOUNTER 2024-11-26 11:44 | Outpatient (CLI) | payer BC ==
[2024-11-26 12:18] LABS: BASOPHILS # (AUTO) 0.1 X10'3 (0-0.2); BASOPHILS % (AUTO) 0.8 % (0-1); EOSINOPHILS # (AUTO) 0.3 X10'3 (0-0.9); EOSINOPHILS % (AUTO) 5.4 % (0-6); HEMATOCRIT 41.7 % (35.0-45.0); HEMOGLOBIN 13.9 g/dl (12.0-16.0); LYMPHOCYTES # (AUTO) 1.7 X10'3 (1.1-4.8); LYMPHOCYTES % (AUTO) 27.1 % (21-51); MEAN CORPUSCULAR HEMOGLOBIN 28.8 PG (27.0-31.0); MEAN CORPUSCULAR HGB CONC 33.3 g/dL (33.0-36.5); MEAN CORPUSCULAR VOLUME 86.5 FL (78-98); MEAN PLATELET VOLUME 7.8 FL (7.4-10.4); MONOCYTES # (AUTO) 0.5 X10'3 (0-0.9); MONOCYTES % (AUTO) 7.6 % (2-12); NEUTROPHILS # (AUTO) 3.8 X10'3 (1.8-7.7); NEUTROPHILS % (AUTO) 59.1 % (42-75); PLATELET COUNT 216 X10'3 (140-440); RED BLOOD COUNT 4.82 X10'6 (4.20-5.60); RED CELL DISTRIBUTION WIDTH 13.4 % (11.5-14.5); WHITE BLOOD COUNT 6.4 X10'3 (4.5-11.0)
[2024-11-26 13:16] LABS: ALANINE AMINOTRANSFERASE 48 U/L (12-78); ALBUMIN 3.8 G/DL (3.4-5.0); ALBUMIN/GLOBULIN RATIO 1.2 (1.1-1.5); ALKALINE PHOSPHATASE 91 IU/L (46-116); ANION GAP 7 (8-16); ASPARTATE AMINO TRANSFERASE 22 U/L (10-37); BILIRUBIN,TOTAL 0.5 MG/DL (0.1-1.0); BLOOD UREA NITROGEN 14 MG/DL (7-18); BUN/CREATININE RATIO 20.3 (10.0-20.0); CALCIUM 8.9 MG/DL (8.5-10.1); CHLORIDE 108 MMOL/L (99-107); CHOL/HDL RATIO 3.4 (0.00-4.99); CHOLESTEROL 163 MG/DL (0-200); CREATININE 0.69 MG/DL (0.40-0.90); GLUCOSE 108 MG/DL (70-104); HDL CHOLESTEROL 48 MG/DL (35-60); LDL CHOLESTEROL 102 MG/DL (50-100); POTASSIUM 3.7 MMOL/L (3.5-5.1); SODIUM 144 MMOL/L (135-145); THYROID STIMULATING HORMONE 1.47 ulU/ml (0.34-4.50); TOTAL CARBON DIOXIDE 29.3 MMOL/L (24-32); TOTAL PROTEIN 7.1 G/DL (6.4-8.2); TRIGLYCERIDES 68 MG/DL (20-135); eGFR 87 ML/MIN
[2024-11-27 15:16] LABS: INSULIN 18.6 uIU/mL (2.6-24.9); VITAMIN D, 25-HYDROXY 50.7 ng/mL (30.0-100.0)
== END 2024-11-26 23:59 | disposition home or self-care (01) ==
LOC: RAD 11:44
PROVIDERS: ATTEND Internal Medicine
DX: E66.9 Obesity, unspecified (principal); E55.9 Vitamin D deficiency, unspecified; R79.9 Abnormal finding of blood chemistry, unspecified; E78.5 Hyperlipidemia, unspecified
CPT/HCPCS: 36415; 80053; 80061; 82306; 82607; 83036; 83525; 84443; 84481; 85025; 86140